=== PATIENT | female | born 1965 ===

== ENCOUNTER 2020-06-28 07:19 | Day surgery (SDC) | payer OTHER ==
[~2020-06-28] VITALS: Ht 154.9 cm; Wt 61.7 kg
--- NOTE | 2020-06-28 05:23 | NUR ---
PACIENTE ALERTA Y ORIENTADA X3. REFIERE VENIR POR ABSCESO EN AREA PERIANAL DESDE EL VIERNES, AREA ENROJECIDA, INFLAMADA Y DRENANDO PUS. REFIERE LE ELISEO FIEBRE Y ESCALOFRIOS.
--- NOTE | 2020-06-28 06:09 | NUR ---
SE RECIBE FEMINA ALERTA Y ORIENMTADA POR PADILLA ESFERAS, EN ADI. SE ORIENTA SOBRE TRATAMIENTO. SE YODIT MUESTRAS DE LABORATORIO ORDENADAS. SE CANALIZA CANALIZA CON AREA DE VENOPUNCION WILTON DE EDEMA O ENROJECIMIENTO. SE ADMINISTRAN MEDICAMENTOS ORDENADOS. SE MANTIENE EN OBSERVACION POR CAMBIOS.
--- NOTE | 2020-06-28 07:00 | NUR ---
SE RECIBE PACIENTE DE TURNO ANTERIOR, ALERTA Y ORIENTADA EN TIEMPO LUGAR Y PERSONA. CON VENOPUNCION PATENTE, WILTON DE ERITEMA Y EDEMA, RECIBIENDO AL MOMENTO TERAPIA DE IVF'S. PENDIENTE CONSULTA CON DR. Lex MINER. SE MANTIENE PTE EN OBSERVACION POR CAMBIOS EN ROJAS CONDICION.
== END 2020-06-28 16:00 | disposition home or self-care (01) ==
LOC: CIR.AMB 07:19 → O/R 07:19 → CIR.AMB 07:19 → ER 07:19 → SEC-K 07:19 → O/R 10:02 → SEC-K 10:02 → EDSTATUS 10:30 → CIR.AMB 16:00 → O/R 16:00
PROVIDERS: ATTEND Obstetrics & Gynecology
DX: N76.4 Abscess of vulva (principal); Z20.822 Contact with and (suspected) exposure to COVID-19